=== PATIENT | female | born 1985 | race Caucasian/White ===

== ENCOUNTER 2017-08-21 04:21 | Emergency (ER) | payer OTHER ==
[~2017-08-21] VITALS: Ht 160 cm; Wt 70.7 kg
[~2017-08-21 04:21] MED LIST: IBUP600 PO; OXYC1SOL5 PO; PREN1TAB30
[2017-08-21 04:26] VITALS: BP 102/65; PULSE 106; RESP 18; TEMP 99.6; O2SAT 98
[2017-08-21] MEDS ORDERED: SODIUM CHLOR 0.9% 1000 ML INJ 1,000 ML IV SCH ×2 (04:38→06:15)
[2017-08-21] MEDS ORDERED: ONDANSETRON HCL 4 MG/2 ML VIAL IVP ONE (04:45)
[2017-08-21] MEDS ORDERED: SODIUM CHLORIDE 0.9% FLUSH 10 ML FLUSH IV FLUSH PRN (04:45)
--- NOTE | 2017-08-21 04:52 | PD ---
HPI Chief Complaint: GI Complaint Time Seen by Provider: 04:37 Travel History International Travel<30 days: No Contact w/Intl Traveler<30days: No Traveled to known affect area: No History of Present Illness HPI The patient is a 31-year-old female complains of vomiting and diarrhea since 6 PM yesterday. The patient is unable to keep fluids down. At one point she had diarrhea stools on the hour and vomited multiple times each hour. She believes she has had a low-grade fever. She feels very thirsty and feels dehydrated. She still has her appendix and gallbladder. [facility] Past Medical History Medical History: Denies Significant Hx Tetanus Vaccination: > 5 Years Influenza Vaccination: Yes ?: Not LMP: 07/25/17 : 1 Para: 1 Ovarian Cysts: Yes (PCOS) Past Surgical History Section: Yes (MAR 2016) Oral Surgery: Yes (WISDOM TEETH) Social History Alcohol Use: No Tobacco Use: No Substance Use: No Allergies-Medications (Allergen,Severity, Reaction): Coded Allergies: Sulfa (Sulfonamide Antibiotics) (Unverified Allergy, Unknown, hives, ) penicillin G (Unverified Allergy, Unknown, hives, 08/21/17) shellfish derived (Unverified Allergy, Unknown, 08/21/17) Reported Meds & Prescriptions Reported Meds & Active Scripts Active Zofran (Ondansetron HCl) 4 Mg Tab 4 Mg PO Q6HR PRN Review of Systems Except as stated in HPI: all other systems reviewed are Neg Physical Exam Narrative GENERAL: The patient is alert, oriented 3, moderately dehydrated appearing in moderate apparent distress with her abdominal discomfort. Her vital signs show heart rate of 106, temperature 99.6 but are otherwise normal. SKIN: Focused skin assessment warm/dry. HEAD: Atraumatic. Normocephalic. EYES: Pupils equal and round. No scleral icterus. No injection or drainage. ENT: No nasal bleeding or discharge. Mucous membranes pink and moist. NECK: Trachea midline. No JVD. CARDIOVASCULAR: Regular rate and rhythm. No murmur appreciated. RESPIRATORY: No accessory muscle use. Clear to auscultation. Breath sounds equal bilaterally. GASTROINTESTINAL: Abdomen soft, with slight tenderness to direct palpation just below the periumbilical area and across the left lower quadrant, nondistended. Hepatic and splenic margins not palpable. No guarding or rebound is present. MUSCULOSKELETAL: No obvious deformities. No clubbing. No cyanosis. No edema. NEUROLOGICAL: Awake and alert. No obvious cranial nerve deficits. Motor grossly within normal limits. Normal speech. PSYCHIATRIC: Appropriate mood and affect; insight and judgment normal. Data Data Last Documented VS Vital Signs Date Time Temp Pulse Resp B/P (MAP) Pulse Ox O2 Delivery O2 Flow Rate FiO2 08/21/17 06:19 98.5 08/21/17 05:39 85 16 100 Room Air Orders Orders Beta Hcg (Quant/Titer) (08/21/17 04:38) Complete Blood Count With Diff (08/21/17 04:38) Comprehensive Metabolic Panel (08/21/17 04:38) Lipase (08/21/17 04:38) Iv Access Insert/Monitor (08/21/17 04:38) Ecg Monitoring (08/21/17 04:38) Oximetry (08/21/17 04:38) Ondansetron Inj (Zofran Inj) (08/21/17 04:45) Sodium Chlor 0.9% 1000 Ml Inj (Ns 1000 M (08/21/17 04:38) Sodium Chloride 0.9% Flush (Ns Flush) (08/21/17 04:45) Ondansetron Inj (Zofran Inj) (08/21/17 06:00) Urinalysis - C+S If Indicated (08/21/17 06:06) Sodium Chlor 0.9% 1000 Ml Inj (Ns 1000 M (08/21/17 06:15) Labs Laboratory Tests Test 08/21/17 04:45 White Blood Count 13.0 TH/MM3 Red Blood Count 5.57 MIL/MM3 Hemoglobin 16.1 GM/DL Hematocrit 48.8 % Mean Corpuscular Volume 87.6 FL Mean Corpuscular Hemoglobin 28.9 PG Mean Corpuscular Hemoglobin Concent 33.0 % Red Cell Distribution Width 12.5 % Platelet Count 243 TH/MM3 Mean Platelet Volume 9.4 FL Neutrophils (%) (Auto) 93.1 % Lymphocytes (%) (Auto) 1.4 % Monocytes (%) (Auto) 4.1 % Eosinophils (%) (Auto) 0.0 % Basophils (%) (Auto) 1.4 % Neutrophils # (Auto) 12.1 TH/MM3 Lymphocytes # (Auto) 0.2 TH/MM3 Monocytes # (Auto) 0.5 TH/MM3 Eosinophils # (Auto) 0.0 TH/MM3 Basophils # (Auto) 0.2 TH/MM3 CBC Comment DIFF FINAL Differential Comment Blood Urea Nitrogen 18 MG/DL Creatinine 1.20 MG/DL Random Glucose 165 MG/DL Total Protein 8.8 GM/DL Albumin 4.4 GM/DL Calcium Level 9.0 MG/DL Alkaline Phosphatase 89 U/L Aspartate Amino Transf (AST/SGOT) 31 U/L Alanine Aminotransferase (ALT/SGPT) 25 U/L Total Bilirubin 1.0 MG/DL Sodium Level 138 MEQ/L Potassium Level 3.9 MEQ/L Chloride Level 103 MEQ/L Carbon Dioxide Level 26.8 MEQ/L Anion Gap 8 MEQ/L Estimat Glomerular Filtration Rate 52 ML/MIN Lipase 60 U/L Human Chorionic Gonadotropin, Quant LESS THAN 1 MIU/ML MDM Medical Decision Making Medical Screen Exam Complete: Yes Emergency Medical Condition: Yes Medical Record Reviewed: Yes Interpretation(s) The complete metabolic profile shows a creatinine of 1.2, GFR 52, glucose 165 with total protein of 8.8 and is otherwise normal. The lipase is normal and the beta-hCG is less than 1. The CBC shows a white count of 13,000. The hemoglobin is 16.1 with hematocrit of 48.8. There are 93% neutrophils. Differential Diagnosis The CBC shows a slightly elevated white count along with apparent hemoconcentration with an elevated hemoglobin and hematocrit. This indicates dehydration. The creatinine and GFR are low as well and this is likely due to prerenal effects of dehydration. Narrative Course It is now 0641 and the patient has drank 2 large glasses of water. She is actually hungry and wants something to eat. Her nausea has resolved. She did require 8 mg of Zofran IV for the nausea and she is told that she may need 8 mg of Zofran by mouth every 6 hours at home. She has been ambulating and has obtained a urine for us. The patient appears to have had mild to moderate dehydration. Impression: Gastroenteritis Diagnosis Primary Impression: Gastroenteritis Additional Impression: Moderate dehydration Additional Instructions: As we discussed, make sure you stay well-hydrated. You came in moderately dehydrated. Follow-up with your primary care physician this week. Med/Other Pt SpecificInfo: Prescription(s) given Scripts Ondansetron (Zofran) 4 Mg Tab 4 MG PO Q6HR Y for NAUSEA OR VOMITING, #30 TAB 0 Refills Prov: Donald Johnson MD 08/21/17 Disposition: 01 DISCHARGE HOME Condition: Stable Donald Johnson MD Aug 21, 2017 04:52
[2017-08-21 05:05] VITALS: BP 106/66; PULSE 90; RESP 16; O2SAT 100
[2017-08-21 05:12] LABS: CHLORIDE 103 MEQ/L (98-107); SODIUM (NA) 138 MEQ/L (136-145)
[2017-08-21 05:16] LABS: ALBUMIN 4.4 GM/DL (3.4-5.0); AUTOMATED NEUTROPHIL # 12.1 TH/MM3 (1.8-7.7); BASOPHIL # 0.2 TH/MM3 (0-0.2); BASOPHIL % 1.4 % (0.0-2.0); BICARBONATE 26.8 MEQ/L (21.0-32.0); BLOOD UREA NITROGEN 18 MG/DL (7-18); GLUCOSE,RANDOM 165 MG/DL (74-106); HEMATOCRIT 48.8 % (35.0-46.0); HEMOGLOBIN 16.1 GM/DL (11.6-15.3); LIPASE 60 U/L (73-393); LYMPH % 1.4 % (9.0-44.0); LYMPHOCYTE # 0.2 TH/MM3 (1.0-4.8); MEAN CELL VOLUME 87.6 FL (80.0-100.0); MEAN CORPUSCULAR HEMOGLOBIN 28.9 PG (27.0-34.0); MEAN PLATELET VOLUME 9.4 FL (7.0-11.0); MONO % 4.1 % (0.0-8.0); MONOCYTE # 0.5 TH/MM3 (0-0.9); NEUT % 93.1 % (16.0-70.0); PLATELET COUNT 243 TH/MM3 (150-450); RED BLOOD COUNT 5.57 MIL/MM3 (4.00-5.30); RED CELL DISTRIBUTION WIDTH 12.5 % (11.6-17.2)
[2017-08-21 05:19] LABS: ALT (GPT) 25 U/L (10-53); AST (GOT) 31 U/L (15-37); GLOMERULAR FILTRATION RATE 52 ML/MIN (>89)
[2017-08-21 05:21] LABS: TOTAL PROTEIN 8.8 GM/DL (6.4-8.2)
[2017-08-21 05:22] LABS: ALKALINE PHOSPHATASE 89 U/L (45-117)
[2017-08-21 05:39] VITALS: BP 105/68; PULSE 85; RESP 16; O2SAT 100
[2017-08-21] MEDS ORDERED: ONDANSETRON HCL 4 MG/2 ML VIAL IV ONE (06:00)
[2017-08-21 06:19] VITALS: TEMP 98.5
[2017-08-21] MEDS ORDERED: ZOFR4TAB PO (06:37)
[2017-08-21 06:59] LABS: BLOOD, URINE NEG (NEG); GLUCOSE,URINE NEG (NEG); KETONE, URINE TRACE mg/dL (NEG); NITRITE,URINE NEG (NEG); URINE LEUKOCYTE ESTERASE NEG (NEG)
[2017-08-21 07:04] LABS: BILIRUBIN, URINE NEG (NEG); URINE COLOR YELLOW (YELLW/STRAW)
[2017-08-21 07:06] LABS: AMORPHOUS SEDIMENT, URINE MOD; BACTERIA, URINE MOD /hpf; SQUAMOUS EPITHELIAL CELL URINE > 8 /hpf (0-5)
== END 2017-08-21 07:22 | disposition home or self-care (01) ==
LOC: PHED 04:21
DX: K52.9 Noninfective gastroenteritis and colitis, unspecified (principal); E86.0 Dehydration; Z88.2 Allergy status to sulfonamides; Z88.0 Allergy status to penicillin
CPT/HCPCS: 80053; 81001; 83690; 84702; 85025; 87086; 96361; 96374; 96375; 99284; J2405; J7030